=== PATIENT | female | born 1935 | race Hispanic/Latino ===

== ENCOUNTER 2022-02-07 05:04 | Emergency (ER) | payer OTHER ==
[2022-02-07 05:35] LABS: BASOPHILS % (AUTO) 0.3 % (0.0-5.0); EOSINOPHILS % (AUTO) 0.8 % (0.0-8.0); HEMATOCRIT 29.1 % (36-48); LYMPHOCYTES % (AUTO) 53.5 % (21.0-51.0); MEAN CORPUSCULAR HEMOGLOBIN 26.8 pg (27.0-33.0); MEAN CORPUSCULAR HGB CONC 31.3 g/dL (32.0-36.0); MEAN CORPUSCULAR VOLUME 85.6 fL (79-99); MONOCYTES % (AUTO) 8.2 % (3.0-13.0); NEUTROPHILS % (AUTO) 35.3 % (40.0-77.0); PLATELET COUNT (AUTO) 667 K/uL (130-400); RED CELL DISTRIBUTION WIDTH 15.5 % (11.0-15.5); WHITE BLOOD COUNT (AUTO) 18.3 K/uL (4.8-10.8)
[2022-02-07 05:47] LABS: INR 1.02 (0.85-1.15); PROTHROMBIN TIME 11.1 SEC (9.6-11.6)
[2022-02-07 05:48] LABS: PARTIAL THROMBOPLASTIN TIME 24.4 SEC (26.3-35.5)
[2022-02-07 05:59] LABS: ALBUMIN 2.2 g/dL (3.5-5.0); BILIRUBIN,TOTAL 0.3 mg/dL (0.2-1.0); TOTAL PROTEIN, SERUM 7.1 g/dL (6.0-8.3)
[2022-02-07 06:13] LABS: POTASSIUM 3.9 mmol/L (3.5-5.1)
[2022-02-07] MEDS ORDERED: 0.9%NACL 1000ML 1,000 ML IV ONE (06:30)
[2022-02-07 06:56] LABS: APPEARANCE,URINE Turbid (CLEAR); BILIRUBIN,URINE Negative (NEGATIVE); COLOR,URINE Yellow (YELLOW); GLUCOSE, URINE (UA) Negative (NEGATIVE); KETONES,URINE Negative (NEGATIVE); LEUKOCYTE ESTERASE ,URINE Large (NEGATIVE); NITRATE,URINE Negative (NEGATIVE); OCCULT BLOOD,URINE Small (NEGATIVE); PROTEIN,URINE 300 mg/dL (NEGATIVE); UROBILINOGEN,URINE 0.2 mg/dL (0.2-1.0)
[2022-02-07 07:41] LABS: BACTERIA,URINE Many /HPF (None Seen); WBC,URINE TNTC /HPF (0-1)
[2022-02-07] MEDS ORDERED: 0.9%NACL 50ML 50 ML IV ONE (07:51)
[2022-02-07] MEDS ORDERED: CEFTRIAXONE 1G VIAL IVP ONE (08:00)
[2022-02-07 09:02] VITALS: BP 152/76
== END 2022-02-07 09:02 | disposition critical access hospital (66) ==
LOC: EDH 05:04
DX: T84.125A Displacement of internal fixation device of left femur, initial encounter (principal); M25.552 Pain in left hip; N39.0 Urinary tract infection, site not specified; Z20.822 Contact with and (suspected) exposure to COVID-19; D64.9 Anemia, unspecified; F03.90 Unspecified dementia, unspecified severity, without behavioral disturbance, psychotic disturbance, mood disturbance, and anxiety; E11.9 Type 2 diabetes mellitus without complications; E78.00 Pure hypercholesterolemia, unspecified; I10 Essential (primary) hypertension; E86.1 Hypovolemia; E03.9 Hypothyroidism, unspecified; Z98.890 Other specified postprocedural states
CPT/HCPCS: 36415; 51702; 73502; 80053; 81001; 83605; 85025; 85610; 85730; 87040 ×2; 87077; 87088; 87186; 87635; 93005; 96361; 96374; 99285; C9803; J0696

== ENCOUNTER → 2023-03-16 | Outpatient (CLI) | payer OTHER | END | disposition home or self-care (01) | LOC: RAH 12:33 | PROVIDERS: ATTEND Internal Medicine | DX: K57.30 Diverticulosis of large intestine without perforation or abscess without bleeding (principal); Z90.49 Acquired absence of other specified parts of digestive tract | CPT/HCPCS: 74150 ==

== ENCOUNTER → 2023-06-14 | Outpatient (CLI) | payer OTHER | END | disposition home or self-care (01) | LOC: RAH 10:00 | PROVIDERS: ATTEND Internal Medicine | DX: E04.1 Nontoxic single thyroid nodule (principal); E03.9 Hypothyroidism, unspecified | CPT/HCPCS: 76536 ==